=== PATIENT | male | born 1980 | race Caucasian/White ===

== ENCOUNTER 2023-11-13 16:27 | Emergency (ER) | payer BC ==
[~2023-11-13] VITALS: Ht 188 cm; Wt 86.5 kg
[2023-11-13] MEDS ORDERED: HYDROcodone/acetaminophen 10/325mg tab PO ONE (17:20)
[2023-11-13] MEDS ORDERED: HYDR-3972 PO (17:22)
[2023-11-13 17:35] VITALS: BP 124/86; PULSE 92; RESP 16; TEMP 97.8; O2SAT 98
== END 2023-11-13 17:39 | disposition home or self-care (01) ==
LOC: ER 16:28
DX: R07.81 Pleurodynia (principal)
CPT/HCPCS: 71100; 99283